=== PATIENT | male | born 1980 | race American Indian/Alaskan Native ===

== ENCOUNTER 2016-11-09 19:28 | Inpatient (IN) | payer OTHER ==
[2016-11-09 20:39] LABS: Urine Drugs of Abuse Note Disclamer
[2016-11-09 20:50] LABS: Bilirubin,Urine NEG (Negative); Blood,Urine NEG (Negative); Ketones,Urine NEG (Negative); Leukocyte Esterase,Urine TR (Negative); Nitrite,Urine NEG (Negative)
[2016-11-09 21:33] LABS: Alanine Aminotransferase 43 units/L (7-56); Albumin 4.1 g/dL (3.9-5); Alkaline Phosphatase 161 units/L (35-129); Anion Gap 18 mmol/L; Blood Urea Nitrogen 11 mg/dL (9-20); Calcium 9.3 mg/dL (8.4-10.2); Carbon Dioxide 25 mmol/L (22-30); Chloride 97.9 mmol/L (98-107); Glucose 273 mg/dL (75-100); Potassium 4.4 mmol/L (3.6-5.0); Sodium 136 mmol/L (137-145); Total Protein 8.4 g/dL (6.3-8.2)
[2016-11-09 21:40] LABS: Basophils % (Auto) 0.9 % (0.0-1.8); Eosinophils % (Auto) 3.5 % (0.0-4.3); Hematocrit 44.1 % (35.5-45.6); Hemoglobin 15.3 gm/dl (11.8-15.2); Mean Corpuscular HGB Conc 35 % (32-34); Mean Corpuscular Hemoglobin 31 pg (28-32); Mean Corpuscular Volume 88 fl (84-94); Platelet Count 283 K/mm3 (140-440); Red Blood Count 5.03 M/mm3 (3.65-5.03); White Blood Count 7.6 K/mm3 (4.5-11.0)
[2016-11-09] MEDS ORDERED: NACL 0.9% 1000 ML 1,000 ML IV ONE (22:44)
--- NOTE | 2016-11-09 23:09 | Emergency Department Report ---
ED Altered Mental Status HPI - General Chief Complaint: Altered Mental Status Stated Complaint: WEAKNESS Time Seen by Provider: 11/09/16 21:42 Source: patient, EMS Mode of arrival: Stretcher Limitations: No Limitations - History of Present Illness Initial Comments: 36 year-old male brought in by EMS for evaluation of altered mental status. He was found lying on the floor in a pool room.The duration for which he was lying on the floor is unknown. MD Complaint: altered mental status Severity: moderate Context: history of similar presen (Yesterday , he had similar problem after lying in the pool room for long periods. He refused to be brought to ED yesterday) Associated Symptoms: weakness, other (confusion) - Related Data Allergies Allergy/AdvReac Type Severity Reaction Status Date / Time No Known Allergies Allergy Verified 11/09/16 20:16 ED Review of Systems ROS: Stated complaint: WEAKNESS Other details as noted in HPI Comment: Unobtainable due to pts medical conditions (pt appears altered and confusion) ED Past Medical Hx - Past Medical History Previous Medical History?: Yes Hx Diabetes: Yes - Surgical History Past Surgical History?: No - Social History Smoking Status: Never Smoker Substance Use Type: None ED Physical Exam - General Limitations: No Limitations, Altered Mental Status General appearance: other (awake, confused, pt has smell of chlorine) - Head Head exam: Present: atraumatic, normocephalic - Eye Eye exam: Present: normal appearance, PERRL, EOMI. Absent: scleral icterus, conjunctival injection - ENT ENT exam: Present: normal exam, normal orophraynx, mucous membranes moist - Neck Neck exam: Present: normal inspection, full ROM. Absent: tenderness, lymphadenopathy - Respiratory Respiratory exam: Present: normal lung sounds bilaterally. Absent: respiratory distress, wheezes, rales, rhonchi, chest wall tenderness - Cardiovascular Cardiovascular Exam: Present: regular rate, normal rhythm, normal heart sounds - GI/Abdominal GI/Abdominal exam: Present: soft, normal bowel sounds. Absent: distended, tenderness, guarding, hyperactive bowel sounds, hypoactive bowel sounds - Rectal Rectal exam: Present: deferred - Extremities Exam Extremities exam: Present: normal inspection, full ROM, normal capillary refill - Back Exam Back exam: Present: normal inspection, full ROM. Absent: CVA tenderness (L) - Neurological Exam Neurological exam: Present: altered, abnormal gait (ataxic gait) ED Course Vital Signs 11/09/16 11/09/16 11/10/16 20:18 23:30 01:34 Temperature 98 F 98.1 F 98.1 F Pulse Rate 74 90 94 H Respiratory 16 16 16 Rate Blood Pressure 174/93 172/91 160/90 [Left] O2 Sat by Pulse 95 98 94 Oximetry - Consultations Consultation #1: 11/10/16 02:11 Patient was discussed with the hospitalist, accepts patient for admission. - Lab Data Result diagrams: 11/09/16 20:42 11/09/16 20:42 Lab Results 11/09/16 11/09/16 11/09/16 Range/Units 20:27 20:32 20:32 WBC (4.5-11.0) K/mm3 RBC (3.65-5.03) M/mm3 Hgb (11.8-15.2) gm/dl Hct (35.5-45.6) % MCV (84-94) fl MCH (28-32) pg MCHC (32-34) % RDW (13.2-15.2) % Plt Count (140-440) K/mm3 Lymph % (Auto) (13.4-35.0) % [place] % (Auto) (0.0-7.3) % Eos % (Auto) (0.0-4.3) % Baso % (Auto) (0.0-1.8) % Lymph # (1.2-5.4) K/mm3 [place] # (0.0-0.8) K/mm3 Eos # (0.0-0.4) K/mm3 Baso # (0.0-0.1) K/mm3 Seg Neutrophils % (40.0-70.0) % Seg Neutrophils # (1.8-7.7) K/mm3 PT (12.2-14.9) Sec. INR (0.87-1.13) APTT (24.2-36.6) Sec. Sodium (137-145) mmol/L Potassium (3.6-5.0) mmol/L Chloride (98-107) mmol/L Carbon Dioxide (22-30) mmol/L Anion Gap mmol/L BUN (9-20) mg/dL Creatinine (0.8-1.5) mg/dL Estimated GFR ml/min BUN/Creatinine Ratio % Glucose (75-100) mg/dL POC Glucose 271 H (70-105) Lactic Acid (0.7-2.0) mmol/L Calcium (8.4-10.2) mg/dL Magnesium (1.7-2.3) mg/dL Total Bilirubin (0.1-1.2) mg/dL AST (5-40) units/L ALT (7-56) units/L Alkaline Phosphatase (35-129) units/L Ammonia (25-60) umol/L Total Creatine Kinase (55-170) units/L Total Protein (6.3-8.2) g/dL Albumin (3.9-5) g/dL Albumin/Globulin Ratio % TSH (0.270-4.200) mlU/mL Urine Color Yellow (Yellow) Urine Turbidity Clear (Clear) Urine pH 6.0 (5.0-7.0) Ur Specific [place] 1.014 (1.003-1.030) Urine Protein 30 mg/dl (Negative) mg/dL Urine Glucose (UA) >=500 (Negative) mg/dL Urine Ketones Neg (Negative) mg/dL Urine Blood Neg (Negative) Urine Nitrite Neg (Negative) Urine Bilirubin Neg (Negative) Urine Urobilinogen 2.0 (<2.0) mg/dL Ur Leukocyte Esterase Tr (Negative) Urine WBC (Auto) 11.0 H (0.0-6.0) /HPF Urine RBC (Auto) 3.0 (0.0-6.0) /HPF U Epithel Cells (Auto) 1.0 (0-13.0) /HPF Salicylates (2.8-20.0) mg/dL Urine Opiates Screen Presumptive negative Urine Methadone Screen Presumptive negative Acetaminophen (10.0-30.0) ug/mL Ur Barbiturates Screen Presumptive negative Ur Phencyclidine Scrn Presumptive negative Ur Amphetamines Screen Presumptive negative U Benzodiazepines Scrn Presumptive negative Urine Cocaine Screen Presumptive negative U Marijuana (THC) Screen Presumptive negative Drugs of Abuse Note Disclamer Plasma/Serum Alcohol (0-0.07) gm% 11/09/16 11/09/16 11/09/16 Range/Units 20:42 20:42 20:42 WBC 7.6 (4.5-11.0) K/mm3 RBC 5.03 (3.65-5.03) M/mm3 Hgb 15.3 H (11.8-15.2) gm/dl Hct 44.1 (35.5-45.6) % MCV 88 (84-94) fl MCH 31 (28-32) pg MCHC 35 H (32-34) % RDW 13.0 L (13.2-15.2) % Plt Count 283 (140-440) K/mm3 Lymph % (Auto) 22.8 (13.4-35.0) % [place] % (Auto) 13.3 H (0.0-7.3) % Eos % (Auto) 3.5 (0.0-4.3) % Baso % (Auto) 0.9 (0.0-1.8) % Lymph # 1.7 (1.2-5.4) K/mm3 [place] # 1.0 H (0.0-0.8) K/mm3 Eos # 0.3 (0.0-0.4) K/mm3 Baso # 0.1 (0.0-0.1) K/mm3 Seg Neutrophils % 59.5 (40.0-70.0) % Seg Neutrophils # 4.5 (1.8-7.7) K/mm3 PT (12.2-14.9) Sec. INR (0.87-1.13) APTT (24.2-36.6) Sec. Sodium 136 L (137-145) mmol/L Potassium 4.4 (3.6-5.0) mmol/L Chloride 97.9 L (98-107) mmol/L Carbon Dioxide 25 (22-30) mmol/L Anion Gap 18 mmol/L BUN 11 (9-20) mg/dL Creatinine 1.0 (0.8-1.5) mg/dL Estimated GFR > 60 ml/min BUN/Creatinine Ratio 11.00 % Glucose 273 H (75-100) mg/dL POC Glucose (70-105) Lactic Acid 1.30 (0.7-2.0) mmol/L Calcium 9.3 (8.4-10.2) mg/dL Magnesium 2.10 (1.7-2.3) mg/dL Total Bilirubin 1.60 H (0.1-1.2) mg/dL AST 28 (5-40) units/L ALT 43 (7-56) units/L Alkaline Phosphatase 161 H (35-129) units/L Ammonia (25-60) umol/L Total Creatine Kinase (55-170) units/L Total Protein 8.4 H (6.3-8.2) g/dL Albumin 4.1 (3.9-5) g/dL Albumin/Globulin Ratio 1.0 % TSH (0.270-4.200) mlU/mL Urine Color (Yellow) Urine Turbidity (Clear) Urine pH (5.0-7.0) Ur Specific [place] (1.003-1.030) Urine Protein (Negative) mg/dL Urine Glucose (UA) (Negative) mg/dL Urine Ketones (Negative) mg/dL Urine Blood (Negative) Urine Nitrite (Negative) Urine Bilirubin (Negative) Urine Urobilinogen (<2.0) mg/dL Ur Leukocyte Esterase (Negative) Urine WBC (Auto) (0.0-6.0) /HPF Urine RBC (Auto) (0.0-6.0) /HPF U Epithel Cells (Auto) (0-13.0) /HPF Salicylates (2.8-20.0) mg/dL Urine Opiates Screen Urine Methadone Screen Acetaminophen (10.0-30.0) ug/mL Ur Barbiturates Screen Ur Phencyclidine Scrn Ur Amphetamines Screen U Benzodiazepines Scrn Urine Cocaine Screen U Marijuana (THC) Screen Drugs of Abuse Note Plasma/Serum Alcohol (0-0.07) gm% 11/09/16 11/09/16 11/09/16 Range/Units 20:42 20:42 20:42 WBC (4.5-11.0) K/mm3 RBC (3.65-5.03) M/mm3 Hgb (11.8-15.2) gm/dl Hct (35.5-45.6) % MCV (84-94) fl MCH (28-32) pg MCHC (32-34) % RDW (13.2-15.2) % Plt Count (140-440) K/mm3 Lymph % (Auto) (13.4-35.0) % [place] % (Auto) (0.0-7.3) % Eos % (Auto) (0.0-4.3) % Baso % (Auto) (0.0-1.8) % Lymph # (1.2-5.4) K/mm3 [place] # (0.0-0.8) K/mm3 Eos # (0.0-0.4) K/mm3 Baso # (0.0-0.1) K/mm3 Seg Neutrophils % (40.0-70.0) % Seg Neutrophils # (1.8-7.7) K/mm3 PT (12.2-14.9) Sec. INR (0.87-1.13) APTT (24.2-36.6) Sec. Sodium (137-145) mmol/L Potassium (3.6-5.0) mmol/L Chloride (98-107) mmol/L Carbon Dioxide (22-30) mmol/L Anion Gap mmol/L BUN (9-20) mg/dL Creatinine (0.8-1.5) mg/dL Estimated GFR ml/min BUN/Creatinine Ratio % Glucose (75-100) mg/dL POC Glucose (70-105) Lactic Acid (0.7-2.0) mmol/L Calcium (8.4-10.2) mg/dL Magnesium (1.7-2.3) mg/dL Total Bilirubin (0.1-1.2) mg/dL AST (5-40) units/L ALT (7-56) units/L Alkaline Phosphatase (35-129) units/L Ammonia (25-60) umol/L Total Creatine Kinase (55-170) units/L Total Protein (6.3-8.2) g/dL Albumin (3.9-5) g/dL Albumin/Globulin Ratio % TSH 1.430 (0.270-4.200) mlU/mL Urine Color (Yellow) Urine Turbidity (Clear) Urine pH (5.0-7.0) Ur Specific [place] (1.003-1.030) Urine Protein (Negative) mg/dL Urine Glucose (UA) (Negative) mg/dL Urine Ketones (Negative) mg/dL Urine Blood (Negative) Urine Nitrite (Negative) Urine Bilirubin (Negative) Urine Urobilinogen (<2.0) mg/dL Ur Leukocyte Esterase (Negative) Urine WBC (Auto) (0.0-6.0) /HPF Urine RBC (Auto) (0.0-6.0) /HPF U Epithel Cells (Auto) (0-13.0) /HPF Salicylates < 0.3 L (2.8-20.0) mg/dL Urine Opiates Screen Urine Methadone Screen Acetaminophen < 15.0 (10.0-30.0) ug/mL Ur Barbiturates Screen Ur Phencyclidine Scrn Ur Amphetamines Screen U Benzodiazepines Scrn Urine Cocaine Screen U Marijuana (THC) Screen Drugs of Abuse Note Plasma/Serum Alcohol (0-0.07) gm% 11/09/16 11/09/16 11/09/16 Range/Units 20:42 23:23 23:23 WBC (4.5-11.0) K/mm3 RBC (3.65-5.03) M/mm3 Hgb (11.8-15.2) gm/dl Hct (35.5-45.6) % MCV (84-94) fl MCH (28-32) pg MCHC (32-34) % RDW (13.2-15.2) % Plt Count (140-440) K/mm3 Lymph % (Auto) (13.4-35.0) % [place] % (Auto) (0.0-7.3) % Eos % (Auto) (0.0-4.3) % Baso % (Auto) (0.0-1.8) % Lymph # (1.2-5.4) K/mm3 [place] # (0.0-0.8) K/mm3 Eos # (0.0-0.4) K/mm3 Baso # (0.0-0.1) K/mm3 Seg Neutrophils % (40.0-70.0) % Seg Neutrophils # (1.8-7.7) K/mm3 PT (12.2-14.9) Sec. INR (0.87-1.13) APTT (24.2-36.6) Sec. Sodium (137-145) mmol/L Potassium (3.6-5.0) mmol/L Chloride (98-107) mmol/L Carbon Dioxide (22-30) mmol/L Anion Gap mmol/L BUN (9-20) mg/dL Creatinine (0.8-1.5) mg/dL Estimated GFR ml/min BUN/Creatinine Ratio % Glucose (75-100) mg/dL POC Glucose (70-105) Lactic Acid 2.50 H* 2.50 H* (0.7-2.0) mmol/L Calcium (8.4-10.2) mg/dL Magnesium (1.7-2.3) mg/dL Total Bilirubin (0.1-1.2) mg/dL AST (5-40) units/L ALT (7-56) units/L Alkaline Phosphatase (35-129) units/L Ammonia (25-60) umol/L Total Creatine Kinase (55-170) units/L Total Protein (6.3-8.2) g/dL Albumin (3.9-5) g/dL Albumin/Globulin Ratio % TSH (0.270-4.200) mlU/mL Urine Color (Yellow) Urine Turbidity (Clear) Urine pH (5.0-7.0) Ur Specific [place] (1.003-1.030) Urine Protein (Negative) mg/dL Urine Glucose (UA) (Negative) mg/dL Urine Ketones (Negative) mg/dL Urine Blood (Negative) Urine Nitrite (Negative) Urine Bilirubin (Negative) Urine Urobilinogen (<2.0) mg/dL Ur Leukocyte Esterase (Negative) Urine WBC (Auto) (0.0-6.0) /HPF Urine RBC (Auto) (0.0-6.0) /HPF U Epithel Cells (Auto) (0-13.0) /HPF Salicylates (2.8-20.0) mg/dL Urine Opiates Screen Urine Methadone Screen Acetaminophen (10.0-30.0) ug/mL Ur Barbiturates Screen Ur Phencyclidine Scrn Ur Amphetamines Screen U Benzodiazepines Scrn Urine Cocaine Screen U Marijuana (THC) Screen Drugs of Abuse Note Plasma/Serum Alcohol < 0.01 (0-0.07) gm% 11/09/16 11/09/16 11/09/16 Range/Units 23:23 23:29 23:29 WBC (4.5-11.0) K/mm3 RBC (3.65-5.03) M/mm3 Hgb (11.8-15.2) gm/dl Hct (35.5-45.6) % MCV (84-94) fl MCH (28-32) pg MCHC (32-34) % RDW (13.2-15.2) % Plt Count (140-440) K/mm3 Lymph % (Auto) (13.4-35.0) % [place] % (Auto) (0.0-7.3) % Eos % (Auto) (0.0-4.3) % Baso % (Auto) (0.0-1.8) % Lymph # (1.2-5.4) K/mm3 [place] # (0.0-0.8) K/mm3 Eos # (0.0-0.4) K/mm3 Baso # (0.0-0.1) K/mm3 Seg Neutrophils % (40.0-70.0) % Seg Neutrophils # (1.8-7.7) K/mm3 PT 15.0 H (12.2-14.9) Sec. INR 1.12 (0.87-1.13) APTT 32.8 (24.2-36.6) Sec. Sodium (137-145) mmol/L Potassium (3.6-5.0) mmol/L Chloride (98-107) mmol/L Carbon Dioxide (22-30) mmol/L Anion Gap mmol/L BUN (9-20) mg/dL Creatinine (0.8-1.5) mg/dL Estimated GFR ml/min BUN/Creatinine Ratio % Glucose (75-100) mg/dL POC Glucose (70-105) Lactic Acid (0.7-2.0) mmol/L Calcium (8.4-10.2) mg/dL Magnesium (1.7-2.3) mg/dL Total Bilirubin (0.1-1.2) mg/dL AST (5-40) units/L ALT (7-56) units/L Alkaline Phosphatase (35-129) units/L Ammonia 59.0 (25-60) umol/L Total Creatine Kinase 384 H (55-170) units/L Total Protein (6.3-8.2) g/dL Albumin (3.9-5) g/dL Albumin/Globulin Ratio % TSH (0.270-4.200) mlU/mL Urine Color (Yellow) Urine Turbidity (Clear) Urine pH (5.0-7.0) Ur Specific [place] (1.003-1.030) Urine Protein (Negative) mg/dL Urine Glucose (UA) (Negative) mg/dL Urine Ketones (Negative) mg/dL Urine Blood (Negative) Urine Nitrite (Negative) Urine Bilirubin (Negative) Urine Urobilinogen (<2.0) mg/dL Ur Leukocyte Esterase (Negative) Urine WBC (Auto) (0.0-6.0) /HPF Urine RBC (Auto) (0.0-6.0) /HPF U Epithel Cells (Auto) (0-13.0) /HPF Salicylates (2.8-20.0) mg/dL Urine Opiates Screen Urine Methadone Screen Acetaminophen (10.0-30.0) ug/mL Ur Barbiturates Screen Ur Phencyclidine Scrn Ur Amphetamines Screen U Benzodiazepines Scrn Urine Cocaine Screen U Marijuana (THC) Screen Drugs of Abuse Note Plasma/Serum Alcohol (0-0.07) gm% 11/09/16 Range/Units 23:29 WBC (4.5-11.0) K/mm3 RBC (3.65-5.03) M/mm3 Hgb (11.8-15.2) gm/dl Hct (35.5-45.6) % MCV (84-94) fl MCH (28-32) pg MCHC (32-34) % RDW (13.2-15.2) % Plt Count (140-440) K/mm3 Lymph % (Auto) (13.4-35.0) % [place] % (Auto) (0.0-7.3) % Eos % (Auto) (0.0-4.3) % Baso % (Auto) (0.0-1.8) % Lymph # (1.2-5.4) K/mm3 [place] # (0.0-0.8) K/mm3 Eos # (0.0-0.4) K/mm3 Baso # (0.0-0.1) K/mm3 Seg Neutrophils % (40.0-70.0) % Seg Neutrophils # (1.8-7.7) K/mm3 PT (12.2-14.9) Sec. INR (0.87-1.13) APTT (24.2-36.6) Sec. Sodium (137-145) mmol/L Potassium (3.6-5.0) mmol/L Chloride (98-107) mmol/L Carbon Dioxide (22-30) mmol/L Anion Gap mmol/L BUN (9-20) mg/dL Creatinine (0.8-1.5) mg/dL Estimated GFR ml/min BUN/Creatinine Ratio % Glucose (75-100) mg/dL POC Glucose (70-105) Lactic Acid (0.7-2.0) mmol/L Calcium (8.4-10.2) mg/dL Magnesium 2.10 (1.7-2.3) mg/dL Total Bilirubin (0.1-1.2) mg/dL AST (5-40) units/L ALT (7-56) units/L Alkaline Phosphatase (35-129) units/L Ammonia (25-60) umol/L Total Creatine Kinase (55-170) units/L Total Protein (6.3-8.2) g/dL Albumin (3.9-5) g/dL Albumin/Globulin Ratio % TSH (0.270-4.200) mlU/mL Urine Color (Yellow) Urine Turbidity (Clear) Urine pH (5.0-7.0) Ur Specific [place] (1.003-1.030) Urine Protein (Negative) mg/dL Urine Glucose (UA) (Negative) mg/dL Urine Ketones (Negative) mg/dL Urine Blood (Negative) Urine Nitrite (Negative) Urine Bilirubin (Negative) Urine Urobilinogen (<2.0) mg/dL Ur Leukocyte Esterase (Negative) Urine WBC (Auto) (0.0-6.0) /HPF Urine RBC (Auto) (0.0-6.0) /HPF U Epithel Cells (Auto) (0-13.0) /HPF Salicylates (2.8-20.0) mg/dL Urine Opiates Screen Urine Methadone Screen Acetaminophen (10.0-30.0) ug/mL Ur Barbiturates Screen Ur Phencyclidine Scrn Ur Amphetamines Screen U Benzodiazepines Scrn Urine Cocaine Screen U Marijuana (THC) Screen Drugs of Abuse Note Plasma/Serum Alcohol (0-0.07) gm% - EKG Data -: EKG Interpreted by 11/10/16 02:12 Normal sinus rhythm, rate of 67 beats per minutes rightward axis, left ventricle hypertrophy and nonspecific ST changes in V2 and V3 normal intervals. - Radiology Data Radiology results: report reviewed - Medical Decision Making Patient has acute delirium from exposure to hypochlorite in pool Critical Care Time: No Critical care attestation.: If time is entered above; I have spent that time in minutes in the direct care of this critically ill patient, excluding procedure time. ED Disposition Clinical Impression: Acute delirium Disposition: OP ADMIT IP TO THIS HOSP Is pt being admited?: Yes Does the pt Need Aspirin: Yes Condition: Fair Referrals: PRIMARY CARE, [Primary Care Provider] - 3-5 Days Time of Disposition: 02:16
--- NOTE | 2016-11-09 23:37 | Cat Scan Report ---
FINAL REPORT EXAM: CT HEAD/BRAIN WO CON HISTORY: acute confusion TECHNIQUE: Noncontrast CT axial images of the brain. PRIORS: None. FINDINGS: No parenchymal mass, mass effect, hemorrhage, midline shift or hydrocephalus. No evidence of acute cortical infarct. No abnormal, extra-axial fluid or air collection. Possible prominent perivascular spaces, chronic small vessel ischemic change or old lacunes in the right periventricular deep white matter, basal ganglia region and left internal capsule. Osseous calvarium grossly intact. IMPRESSION: 1. No acute intracranial findings. 2. Possible chronic ischemic changes.
[2016-11-10 00:05] LABS: INR 1.12 (0.87-1.13); Partial Thromboplastin Time 32.8 Sec. (24.2-36.6)
[2016-11-10] MEDS ORDERED: ROCEPHIN/NS 1 GM/50 ML 1 GM/50 ML BAG IV ONE (00:07)
[2016-11-10] MEDS ORDERED: NACL 0.9% 1000 ML 1,000 ML IV ONE (00:08)
[2016-11-10] MEDS ORDERED: MILK OF MAGNESIA PO PRN (02:26)
[2016-11-10] MEDS ORDERED: DULCOLAX PR PRN (02:26)
[2016-11-10] MEDS ORDERED: NORCO 5/325 PO PRN (02:26)
[2016-11-10] MEDS ORDERED: TYLENOL PO PRN (02:26)
[2016-11-10] MEDS ORDERED: ZOFRAN IV PRN (02:26)
--- NOTE | 2016-11-10 02:26 | History and Physical Report ---
History of Present Illness Date of examination: 11/10/16 Date of admission: 11/10/16 Chief complaint: Altered mental status History of present illness: patient is 36-year-old with history of diabetes. He was brought in from [facility] because of altered mental status. Apparently was seen lying on the floor in the hot tub/pool area for several hours therefore brought in for evaluation. Patient was found to be confused. He denies doing any exercises at the facility. Currently denies any chest pain or shortness of breath. No headache, no fever. He is somewhat confused and cannot give a complete history. In Emergency department a CT head was unremarkable. Willl admit for further workup. Past History Past Medical History: diabetes Past Surgical History: No surgical history Social history: single, full code. denies: smoking, alcohol abuse Family history: hypertension Medications and Allergies Allergies Allergy/AdvReac Type Severity Reaction Status Date / Time No Known Allergies Allergy Verified 11/09/16 20:16 Active Meds: Active Medications Sodium Chloride (Nacl 0.9% 1000 Ml) 1,000 mls @ 125 mls/hr IV ONCE ONE Stop: 11/10/16 06:43 Review of Systems ROS unobtainable: due to mental status Exam - Physical Exam Narrative exam: Gen Appearance: Not in acute distress HEENT: normocephalic, atraumatic Neck: supple, no JVD Lungs: Clear to auscultation, bilaterally, no rales, no wheeze Heart: S1 and S2 regular, no murmurs, no rubs or gallop Abdomen: Soft , non tender, non distended, normal bowel sounds Extremity: No edema, no clubbing or cyanosis, Neuro : Awake, alert, oriented to person, place,time, confused, normal speech, moves all extremities - Constitutional Vitals: Temp Pulse Resp BP Pulse Ox 98.1 F 94 H 16 160/90 94 11/10/16 01:34 11/10/16 01:34 11/10/16 01:34 11/10/16 01:34 11/10/16 01:34 Results - Labs CBC & Chem 7: 11/09/16 20:42 11/09/16 20:42 Labs: Abnormal lab results 11/09/16 11/09/16 11/09/16 Range/Units 20:27 20:32 20:42 Hgb 15.3 H (11.8-15.2) gm/dl MCHC 35 H (32-34) % RDW 13.0 L (13.2-15.2) % [place] % (Auto) 13.3 H (0.0-7.3) % [place] # 1.0 H (0.0-0.8) K/mm3 PT (12.2-14.9) Sec. Sodium (137-145) mmol/L Chloride (98-107) mmol/L Glucose (75-100) mg/dL POC Glucose 271 H (70-105) Lactic Acid (0.7-2.0) mmol/L Total Bilirubin (0.1-1.2) mg/dL Alkaline Phosphatase (35-129) units/L Total Creatine Kinase (55-170) units/L Total Protein (6.3-8.2) g/dL Urine WBC (Auto) 11.0 H (0.0-6.0) /HPF Salicylates (2.8-20.0) mg/dL 11/09/16 11/09/16 11/09/16 Range/Units 20:42 20:42 23:23 Hgb (11.8-15.2) gm/dl MCHC (32-34) % RDW (13.2-15.2) % [place] % (Auto) (0.0-7.3) % [place] # (0.0-0.8) K/mm3 PT (12.2-14.9) Sec. Sodium 136 L (137-145) mmol/L Chloride 97.9 L (98-107) mmol/L Glucose 273 H (75-100) mg/dL POC Glucose (70-105) Lactic Acid 2.50 H* (0.7-2.0) mmol/L Total Bilirubin 1.60 H (0.1-1.2) mg/dL Alkaline Phosphatase 161 H (35-129) units/L Total Creatine Kinase (55-170) units/L Total Protein 8.4 H (6.3-8.2) g/dL Urine WBC (Auto) (0.0-6.0) /HPF Salicylates < 0.3 L (2.8-20.0) mg/dL 11/09/16 11/09/16 11/09/16 Range/Units 23:23 23:29 23:29 Hgb (11.8-15.2) gm/dl MCHC (32-34) % RDW (13.2-15.2) % [place] % (Auto) (0.0-7.3) % [place] # (0.0-0.8) K/mm3 PT 15.0 H (12.2-14.9) Sec. Sodium (137-145) mmol/L Chloride (98-107) mmol/L Glucose (75-100) mg/dL POC Glucose (70-105) Lactic Acid 2.50 H* (0.7-2.0) mmol/L Total Bilirubin (0.1-1.2) mg/dL Alkaline Phosphatase (35-129) units/L Total Creatine Kinase 384 H (55-170) units/L Total Protein (6.3-8.2) g/dL Urine WBC (Auto) (0.0-6.0) /HPF Salicylates (2.8-20.0) mg/dL Assessment and Plan Acute metabolic encephalopathy with altered mental status. Patient brought in from [facility], was seen lying on floor in hot tub area. Admit to medical floor with remote telemetry. Do neurochecks every [address] head was unremarkable. Diabetes mellitus type II. Fingerstick glucose Qac and HS. He is confused and cannot tell what medications he is taking. Current glucose is 273. Start Novolin 70/30 bid. Obtain hemoglobin A1c. Elevated blood pressure. He may have hypertension but is confused and cannot provide much history. Will start Norvasc 5 mg by mouth daily. Hyponatremia. Started on iv fluids with Normal saline. Elevated lactic acid, likely metabolic. UTI. Started on Rocephin. Obtain Urine culture. DVT prophylaxis with heparin subcutanous. Full code status.
[2016-11-10] MEDS: NORVASC PO SCH ×2 (02:48→03:29)
[2016-11-10] MEDS: NACL 0.9% 1000 ML 1,000 ML IV SCH ×2 (03:32→22:04)
[2016-11-10] MEDS: HEPARIN SUB-Q SCH ×3 (05:31→22:05)
[2016-11-10] MEDS ORDERED: ASPIRIN PO ONE (05:54)
[2016-11-10] MEDS ORDERED: D50W (25GM) Syringe IV PRN (06:55)
[2016-11-10] MEDS: APRESOLINE IV PRN ×2 (08:15→18:38)
[2016-11-10] MEDS: NOVOLOG SUB-Q SCH ×6 (10:47→22:53)
[2016-11-10] MEDS: ROCEPHIN/NS 1 GM/50 ML 1 GM/50 ML BAG IV SCH (22:05)
[2016-11-11] MEDS: HEPARIN SUB-Q SCH ×3 (05:58→22:43)
[2016-11-11 07:07] LABS: Basophils % (Auto) 0.5 % (0.0-1.8); Eosinophils % (Auto) 1.9 % (0.0-4.3); Hematocrit 42.9 % (35.5-45.6); Mean Corpuscular HGB Conc 35 % (32-34); Mean Corpuscular Hemoglobin 31 pg (28-32); Mean Corpuscular Volume 87 fl (84-94); Platelet Count 285 K/mm3 (140-440); Red Blood Count 4.91 M/mm3 (3.65-5.03); Red Cell Distribution Width 13.2 % (13.2-15.2); White Blood Count 7.5 K/mm3 (4.5-11.0)
[2016-11-11 07:27] LABS: Anion Gap 17 mmol/L; BUN/Creatinine Ratio 8.88; Blood Urea Nitrogen 8 mg/dL (9-20); Calcium 8.9 mg/dL (8.4-10.2); Carbon Dioxide 22 mmol/L (22-30); Glucose 225 mg/dL (75-100); Sodium 141 mmol/L (137-145)
[2016-11-11 07:43] LABS: Potassium 3.4 mmol/L (3.6-5.0)
[2016-11-11] MEDS: NOVOLOG SUB-Q SCH ×4 (08:29→22:44)
[2016-11-11] MEDS ORDERED: ATIVAN IV ONE (10:38)
[2016-11-11] MEDS: NORVASC PO SCH (10:43)
--- NOTE | 2016-11-11 12:54 | Progress Note ---
Assessment and Plan Assessment and plan: 36 years old AAM with hypertension and diabetes, [facility], [facility] from [facility] where he was found confused laying on the floor in the hot tub area 1. Acute metabolic encephalopathy Likely multifactorial - metabolic/infectious/? psychiatric TSH within normal limits, CT head with no acute abnormalities Scheduled for brain MRI Treat underlying conditions Try to obtain records from [place] Consults psychiatry 2. UTI UA positive, urine culture obtained and started on Rocephin 3. Hyponatremia Mild, resolved 4. Elevated lactic acid Treat UTI 5. HTN Started on amlodipine on admission BP still elevated Will increase amlodipine dose and add lisinopril as he is diabetic 6. DM Started on insulin 70/30 A1c elevated at 8.8 and BS in 200-300 range Increased dose of insulin and add SSI based on the chest to assess insulin requirements and make adjustments 7. DVT prophylaxis Heparin subcutaneous History Interval history: reports no issues overnight, but flat affect, avoids eye contact Hospitalist Physical - Constitutional Vitals: Temp Pulse Resp BP Pulse Ox 98.9 F 89 15 160/102 94 11/11/16 07:42 11/11/16 07:42 11/11/16 07:42 11/11/16 10:43 11/11/16 07:42 General appearance: Present: no acute distress, well-nourished - EENT Eyes: Present: PERRL, EOM intact. Absent: scleral icterus, conjunctival injection - Neck Neck: Present: supple, normal ROM. Absent: masses or JVD - Respiratory Respiratory effort: normal Respiratory: bilateral: CTA, negative: rhonchi, wheezing - Cardiovascular Rhythm: regular Heart Sounds: Present: S1 & S2. Absent: systolic murmur - Extremities Extremities: no ischemia - Abdominal General gastrointestinal: soft, non-tender, non-distended, normal bowel sounds - Psychiatric Psychiatric: no intact judgment & insight, other (flat affect, not making eye contact, responding only with yes or no) - Neurologic Neurologic: CNII-XII intact, no focal deficits Results - Labs CBC & Chem 7: 11/11/16 06:18 11/11/16 06:18 Labs: Laboratory Last Values WBC 7.5 K/mm3 (4.5-11.0) 11/11/16 06:18 RBC 4.91 M/mm3 (3.65-5.03) 11/11/16 06:18 Hgb 15.0 gm/dl (11.8-15.2) 11/11/16 06:18 Hct 42.9 % (35.5-45.6) 11/11/16 06:18 MCV 87 fl (84-94) 11/11/16 06:18 MCH 31 pg (28-32) 11/11/16 06:18 MCHC 35 % (32-34) H 11/11/16 06:18 RDW 13.2 % (13.2-15.2) 11/11/16 06:18 Plt Count 285 K/mm3 (140-440) 11/11/16 06:18 Lymph % (Auto) 31.9 % (13.4-35.0) 11/11/16 06:18 Dent % (Auto) 15.4 % (0.0-7.3) H 11/11/16 06:18 Eos % (Auto) 1.9 % (0.0-4.3) 11/11/16 06:18 Baso % (Auto) 0.5 % (0.0-1.8) 11/11/16 06:18 Lymph # 2.4 K/mm3 (1.2-5.4) 11/11/16 06:18 Dent # 1.2 K/mm3 (0.0-0.8) H 11/11/16 06:18 Eos # 0.1 K/mm3 (0.0-0.4) 11/11/16 06:18 Baso # 0.0 K/mm3 (0.0-0.1) 11/11/16 06:18 Seg Neutrophils % 50.3 % (40.0-70.0) 11/11/16 06:18 Seg Neutrophils # 3.8 K/mm3 (1.8-7.7) 11/11/16 06:18 PT 15.0 Sec. (12.2-14.9) H 11/09/16 23:29 INR 1.12 (0.87-1.13) 11/09/16 23:29 APTT 32.8 Sec. (24.2-36.6) 11/09/16 23:29 Sodium 141 mmol/L (137-145) 11/11/16 06:18 Potassium 3.4 mmol/L (3.6-5.0) L D 11/11/16 06:18 Chloride 105.0 mmol/L (98-107) 11/11/16 06:18 Carbon Dioxide 22 mmol/L (22-30) 11/11/16 06:18 Anion Gap 17 mmol/L 11/11/16 06:18 BUN 8 mg/dL (9-20) L 11/11/16 06:18 Creatinine 0.9 mg/dL (0.8-1.5) 11/11/16 06:18 Estimated GFR > 60 ml/min 11/11/16 06:18 BUN/Creatinine Ratio 8.88 % 11/11/16 06:18 Glucose 225 mg/dL (75-100) H 11/11/16 06:18 POC Glucose 232 (70-105) H 11/11/16 11:53 Hemoglobin A1c 8.8 % (4-6) H 11/09/16 20:42 Lactic Acid 2.50 mmol/L (0.7-2.0) H* 11/09/16 23:23 Calcium 8.9 mg/dL (8.4-10.2) 11/11/16 06:18 Magnesium 2.10 mg/dL (1.7-2.3) 11/09/16 23:29 Total Bilirubin 1.60 mg/dL (0.1-1.2) H 11/09/16 20:42 AST 28 units/L (5-40) 11/09/16 20:42 ALT 43 units/L (7-56) 11/09/16 20:42 Alkaline Phosphatase 161 units/L (35-129) H 11/09/16 20:42 Ammonia 59.0 umol/L (25-60) 11/09/16 23:23 Total Creatine Kinase 323 units/L (55-170) H 11/10/16 05:59 Total Protein 8.4 g/dL (6.3-8.2) H 11/09/16 20:42 Albumin 4.1 g/dL (3.9-5) 11/09/16 20:42 Albumin/Globulin Ratio 1.0 % 11/09/16 20:42 TSH 1.430 mlU/mL (0.270-4.200) 11/09/16 20:42 Urine Color Yellow (Yellow) 11/09/16 20:32 Urine Turbidity Clear (Clear) 11/09/16 20:32 Urine pH 6.0 (5.0-7.0) 11/09/16 20:32 Ur Specific [place] 1.014 (1.003-1.030) 11/09/16 20:32 Urine Protein 30 mg/dl mg/dL (Negative) 11/09/16 20:32 Urine Glucose (UA) >=500 mg/dL (Negative) 11/09/16 20:32 Urine Ketones Neg mg/dL (Negative) 11/09/16 20:32 Urine Blood Neg (Negative) 11/09/16 20:32 Urine Nitrite Neg (Negative) 11/09/16 20:32 Urine Bilirubin Neg (Negative) 11/09/16 20:32 Urine Urobilinogen 2.0 mg/dL (<2.0) 11/09/16 20:32 Ur Leukocyte Esterase Tr (Negative) 11/09/16 20:32 Urine WBC (Auto) 11.0 /HPF (0.0-6.0) H 11/09/16 20:32 Urine RBC (Auto) 3.0 /HPF (0.0-6.0) 11/09/16 20:32 U Epithel Cells (Auto) 1.0 /HPF (0-13.0) 11/09/16 20:32 Salicylates < 0.3 mg/dL (2.8-20.0) L 11/09/16 20:42 Urine Opiates Screen Presumptive negative 11/09/16 20:32 Urine Methadone Screen Presumptive negative 11/09/16 20:32 Acetaminophen < 15.0 ug/mL (10.0-30.0) 11/09/16 20:42 Ur Barbiturates Screen Presumptive negative 11/09/16 20:32 Ur Phencyclidine Scrn Presumptive negative 11/09/16 20:32 Ur Amphetamines Screen Presumptive negative 11/09/16 20:32 U Benzodiazepines Scrn Presumptive negative 11/09/16 20:32 Urine Cocaine Screen Presumptive negative 11/09/16 20:32 U Marijuana (THC) Screen Presumptive negative 11/09/16 20:32 Drugs of Abuse Note Disclamer 11/09/16 20:32 Plasma/Serum Alcohol < 0.01 gm% (0-0.07) 11/09/16 20:42
[2016-11-11] MEDS ORDERED: NORVASC PO SCH (13:10)
[2016-11-11] MEDS: ZESTRIL PO SCH (14:00)
[2016-11-11] MEDS ORDERED: NORVASC PO ONE (14:00)
--- NOTE | 2016-11-11 14:40 | Magnetic Resonance Report ---
MRI scan of brain: History: Altered mental status. Technique: Multiplanar, multisequence images were obtained without contrast injection. Findings: There is multiple focal areas of restricted diffusion measuring up to one cm along the right cerebral hemisphere including the right basal ganglia and the right temporal lobe, the parietal lobe and corpus callosum. Corresponding areas of hyperintensity is noted on T2-weighted images and flair imaging. Normal T1-weighted images. No hemorrhage. No extra-axial fluid collection. Normal brainstem and cerebellum. Impression: Multiple focal areas of restricted diffusion right cerebral hemisphere suggestive ischemic changes probably related to multiple emboli.
[2016-11-11] MEDS: NACL 0.9% 1000 ML 1,000 ML IV SCH (18:03)
[2016-11-11] MEDS: ROCEPHIN/NS 1 GM/50 ML 1 GM/50 ML BAG IV SCH (22:45)
[2016-11-12] MEDS: HEPARIN SUB-Q SCH ×3 (06:56→22:35)
[2016-11-12] MEDS: NOVOLOG SUB-Q SCH ×4 (08:19→22:38)
[2016-11-12] MEDS: NORVASC PO SCH (09:44)
[2016-11-12] MEDS: ZESTRIL PO SCH (09:45)
[2016-11-12] MEDS ORDERED: ZESTRIL PO SCH (10:49)
[2016-11-12] MEDS ORDERED: ASPIRIN PO ONE (10:52)
[2016-11-12 11:57] LABS: Anion Gap 15 mmol/L; BUN/Creatinine Ratio 11; Blood Urea Nitrogen 9 mg/dL (9-20); Calcium 9.4 mg/dL (8.4-10.2); Carbon Dioxide 24 mmol/L (22-30); Chloride 103.2 mmol/L (98-107); Glucose 252 mg/dL (75-100); Potassium 3.9 mmol/L (3.6-5.0); Sodium 138 mmol/L (137-145)
[2016-11-12] MEDS ORDERED: ZESTRIL PO ONE (12:00)
[2016-11-12] MEDS: NACL 0.9% 1000 ML 1,000 ML IV SCH (12:32)
--- NOTE | 2016-11-12 13:04 | Consultation ---
History of Present Illness - Reason for Consult Consult date: 11/12/16 stroke - History of Present Illness Neurology note suspect the delirium is caused by multiple small emboli to right cerebral hemisphere rec check ECHO for sourse of emboli this is stroke syndrome Thanks will follow Past History Past Medical History: diabetes Past Surgical History: No surgical history Social history: single, full code. denies: smoking, alcohol abuse Family history: hypertension Medications and Allergies Allergies Allergy/AdvReac Type Severity Reaction Status Date / Time No Known Allergies Allergy Verified 11/09/16 20:16 Active Meds: Active Medications Acetaminophen (Tylenol) 650 mg PO Q4H PRN PRN Reason: Pain MILD(1-3)/Fever >100.5/BERNARD Acetaminophen/Hydrocodone Bitart ([place] 5/325) 1 each PO Q6H PRN PRN Reason: Pain, Moderate (4-6) Last Admin: 11/10/16 22:48 Dose: 1 each Amlodipine Besylate (Norvasc) 10 mg PO DAILY [facility] Last Admin: 11/12/16 09:44 Dose: 10 mg Aspirin (Aspirin) 325 mg PO QDAY [facility] Atorvastatin Calcium (Lipitor) 40 mg PO QHS [facility] Bisacodyl (Dulcolax) 10 mg [place] QDAY PRN PRN Reason: Constipation unrelieved by MOM Dextrose (D50w (25gm) Syringe) 50 ml IV PRN PRN PRN Reason: Hypoglycemia Heparin Sodium (Porcine) (Heparin) 5,000 unit SUB-Q Q8HR [facility] Last Admin: 11/12/16 06:56 Dose: 5,000 unit Hydralazine HCl (Apresoline) 10 mg IV Q4HR PRN PRN Reason: For SBP>165 or DBP>105 Last Admin: 11/10/16 18:38 Dose: 10 mg Ceftriaxone Sodium (Rocephin/Ns 1 Gm/50 Ml) 1 gm in 50 mls @ 100 mls/hr IV Q24H [facility] PRN Reason: Protocol Last Admin: 11/11/16 22:45 Dose: 100 mls/hr Sodium Chloride (Nacl 0.9% 1000 Ml) 1,000 mls @ 75 mls/hr IV DIRECT [facility] Last Admin: 11/12/16 12:32 Dose: 75 mls/hr Insulin Aspart (Novolog) 0 units SUB-Q AC [facility] PRN Reason: Protocol Last Admin: 11/12/16 12:25 Dose: 3 units Insulin Aspart (Novolog) 0 units SUB-Q QHS [facility] PRN Reason: Protocol Last Admin: 11/11/16 22:44 Dose: 4 units Insulin Human Isoph/Insulin Regular (Novolin 70/30) 15 unit SUB-Q BIDDIAB [facility] Last Admin: 11/12/16 08:28 Dose: 15 unit Lisinopril (Zestril) 20 mg PO QDAY [facility] Magnesium Hydroxide (Milk Of Magnesia) 30 ml PO Q4H PRN PRN Reason: Constipation Ondansetron HCl (Zofran) 4 mg IV Q6H PRN PRN Reason: nausea or vomiting Exam - Constitutional Vitals: Temp Pulse Resp BP Pulse Ox 98.1 F 84 16 160/103 96 11/12/16 12:40 11/12/16 12:40 11/12/16 12:40 11/12/16 12:40 11/12/16 12:40 Results - Labs CBC & Chem 7: 11/11/16 06:18 11/12/16 11:13 Labs: Abnormal lab results 11/11/16 11/11/16 11/12/16 Range/Units 16:53 21:19 06:35 Glucose (75-100) mg/dL POC Glucose 346 H 285 H 195 H (70-105) 11/12/16 11/12/16 Range/Units 11:13 11:59 Glucose 252 H (75-100) mg/dL POC Glucose 226 H (70-105)
--- NOTE | 2016-11-12 16:36 | Progress Note ---
Assessment and Plan Acute encephalopathy Likely multifactorial - acute cva/infectious TSH within normal limits, CT head with no acute abnormalities MRI showed multiple acute CVA on the right hemisphere consulted neurology Acute right CVA Noted MRI result consulted neurology obtain 2d echo UTI UA positive, urine culture obtained and started on Rocephin Hyponatremia Mild, resolved Elevated lactic acid Treat UTI HTN Started on amlodipine on admission increased amlodipine dose and added lisinopril as he is diabetic DM type 2 Started on insulin 70/30 A1c elevated at 8.8 and BS in 200-300 range Increased dose of insulin to 18 unit qam and bedtime and add SSI based on the BG level and make adjustments DVT prophylaxis Heparin subcutaneous Brief History: 36 years old AAM with hypertension and diabetes, who gets his care at the [facility], brought to ER from [facility] where he was found confused laying on the floor in the hot tub area. Radiological Data: CT head on 11/09/16 showed no acute finding MRI of brain on 11/11/16 showed multiple diffusion restriction on the right hemisphere Subjective Date of service: 11/12/16 Interval history: Pt seen and examined No reports of any acute issue overnight, MRI showed multiple acute CVA on the right hemisphere Objective - Exam Narrative Exam: General appearance: Present: no acute distress, well-nourished - EENT Eyes: Present: PERRL, EOM intact. Absent: scleral icterus, conjunctival injection - Neck Neck: Present: supple, normal ROM. Absent: masses or JVD - Respiratory Respiratory effort: normal Respiratory: bilateral: CTA, negative: rhonchi, wheezing - Cardiovascular Rhythm: regular Heart Sounds: Present: S1 & S2. Absent: systolic murmur - Extremities Extremities: no ischemia - Abdominal General gastrointestinal: soft, non-tender, non-distended, normal bowel sounds - Psychiatric Psychiatric: cooperative - Neurologic Neurologic: CNII-XII intact, no focal deficits - Constitutional Vitals: Vital Signs - 12hr 11/12/16 11/12/16 11/12/16 07:29 09:44 09:45 Temperature 98.5 F Pulse Rate 90 90 90 Respiratory 24 Rate Blood Pressure 155/104 155/104 155/104 O2 Sat by Pulse 98 Oximetry 11/12/16 11/12/16 11/12/16 12:40 15:25 15:30 Temperature 98.1 F 98.8 F Pulse Rate 84 84 91 H Respiratory 16 15 Rate Blood Pressure 160/103 160/103 159/106 O2 Sat by Pulse 96 97 Oximetry - Labs CBC & Chem 7: 11/11/16 06:18 11/12/16 11:13 Labs: Abnormal lab results 11/11/16 11/11/16 11/12/16 Range/Units 16:53 21:19 06:35 Glucose (75-100) mg/dL POC Glucose 346 H 285 H 195 H (70-105) 11/12/16 11/12/16 Range/Units 11:13 11:59 Glucose 252 H (75-100) mg/dL POC Glucose 226 H (70-105)
[2016-11-12] MEDS: ROCEPHIN/NS 1 GM/50 ML 1 GM/50 ML BAG IV SCH (22:39)
[2016-11-13] MEDS: APRESOLINE IV PRN ×2 (00:15→20:11)
[2016-11-13] MEDS: NACL 0.9% 1000 ML 1,000 ML IV SCH ×2 (01:14→17:06)
[2016-11-13] MEDS: HEPARIN SUB-Q SCH ×3 (05:58→21:36)
[2016-11-13] MEDS: NOVOLOG SUB-Q SCH ×4 (08:56→22:00)
[2016-11-13] MEDS: ZESTRIL PO SCH (10:12)
[2016-11-13] MEDS: ASPIRIN PO SCH (10:12)
[2016-11-13] MEDS: NORVASC PO SCH (10:13)
--- NOTE | 2016-11-13 16:16 | Progress Note ---
Assessment and Plan Acute encephalopathy Likely from acute cva, but need to r/o possible seizure TSH within normal limits, CT head with no acute abnormalities MRI showed multiple acute CVA on the right hemisphere consulted neurology, EEG pending Acute right CVA Noted MRI result consulted neurology 2d echo showed no thrombus will order hypercoagulation work up UTI UA positive, urine culture obtained and started on Rocephin Hyponatremia Mild, resolved Elevated lactic acid Treat UTI HTN Started on amlodipine on admission changed to metoprolol as he is getting tachycardic, cont lisinopril DM type 2 Started on insulin 70/30 A1c elevated at 8.8 and BS in 200-300 range Increased dose of insulin to 20 unit qam and bedtime and add SSI based on the BG level and make adjustments add metformin DVT prophylaxis Heparin subcutaneous Brief History: 36 years old AAM with hypertension and diabetes, who gets his care at the [facility], brought to ER from [facility] where he was found confused laying on the floor in the hot tub area. Radiological Data: CT head on 11/09/16 showed no acute finding MRI of brain on 11/11/16 showed multiple diffusion restriction on the right hemisphere Subjective Date of service: 11/13/16 Interval history: Pt seen and examined No reports of any acute issue overnight, PT eval pending Objective - Exam Narrative Exam: General appearance: Present: no acute distress, well-nourished - EENT Eyes: Present: PERRL, EOM intact. Absent: scleral icterus, conjunctival injection - Neck Neck: Present: supple, normal ROM. Absent: masses or JVD - Respiratory Respiratory effort: normal Respiratory: bilateral: CTA, negative: rhonchi, wheezing - Cardiovascular Rhythm: regular Heart Sounds: Present: S1 & S2. Absent: systolic murmur - Extremities Extremities: no ischemia - Abdominal General gastrointestinal: soft, non-tender, non-distended, normal bowel sounds - Psychiatric Psychiatric: cooperative - Neurologic Neurologic: CNII-XII intact, no focal deficits - Constitutional Vitals: Vital Signs - 12hr 11/13/16 11/13/16 11/13/16 05:18 07:32 10:12 Temperature 98.2 F 97.7 F Pulse Rate 102 H 108 H Respiratory 18 24 Rate Blood Pressure 151/102 157/97 157/97 O2 Sat by Pulse 99 97 Oximetry 11/13/16 11/13/16 11/13/16 10:13 11:05 15:08 Temperature 98.1 F 98.3 F Pulse Rate 98 H 89 Respiratory 16 18 Rate Blood Pressure 157/97 146/96 145/93 O2 Sat by Pulse 97 100 Oximetry - Labs CBC & Chem 7: 11/11/16 06:18 11/12/16 11:13 Labs: Abnormal lab results 11/12/16 11/12/16 11/13/16 Range/Units 16:58 21:18 06:26 POC Glucose 213 H 232 H 232 H (70-105) 11/13/16 Range/Units 11:07 POC Glucose 247 H (70-105)
[2016-11-13] MEDS: GLUCOPHAGE PO SCH (18:01)
[2016-11-13] MEDS: ROCEPHIN/NS 1 GM/50 ML 1 GM/50 ML BAG IV SCH (21:35)
[2016-11-13] MEDS: COREG PO SCH (21:36)
[2016-11-14] MEDS: HEPARIN SUB-Q SCH ×3 (05:15→21:06)
[2016-11-14] MEDS: NOVOLOG SUB-Q SCH ×4 (08:45→21:28)
[2016-11-14] MEDS: GLUCOPHAGE PO SCH ×2 (08:46→17:24)
[2016-11-14] MEDS: COREG PO SCH ×2 (09:50→21:05)
[2016-11-14] MEDS: ASPIRIN PO SCH (09:51)
[2016-11-14] MEDS: ZESTRIL PO SCH (09:51)
--- NOTE | 2016-11-14 10:28 | Discharge Summary ---
Providers - Providers Date of Admission: 11/10/16 02:26 Date of discharge: 11/15/16 Attending physician: CLINT HURT 11/11/16 13:10 psychiatry consult [Consult to Mental Health] [CONS] Routine Reason For Exam: ?PTSD/other psyc disorder. [facility] consult to:: Notified:: Phone number called:: [phone] Time called:: 14:37 11/12/16 10:52 Consult to Physician [CONS] Routine Consulting Provider: LINUS GODFREY Reason For Exam: acute cva Place consult to:: neurology/DR. GODFREY Notified:: OFFICE Phone number called:: [phone] Was contact made?: Yes If yes, spoke with:: CELIA Time called:: 11:09 Comment:: JD NOTIFIED 11/12/16 10:54 Physical Therapy Evaluation and Treat [CONS] Routine Comment: Reason For Exam: placement Primary care physician: BLASTING [employer] [facility]ER Hospitalization Condition: Fair Disposition: DC-30 STILL A PATIENT Exam - Constitutional Vitals: Temp Pulse Resp BP Pulse Ox 98.6 F 90 17 142/102 98 11/14/16 08:54 11/14/16 09:51 11/14/16 08:54 11/14/16 09:51 11/14/16 08:54 Plan Follow up with: PRIMARY CARE, [Primary Care Provider] - 3-5 Days Prescriptions: AtorvaSTATin [Lipitor] 40 mg PO QHS #30 tablet Carvedilol [Coreg] 6.25 mg PO BID #60 tablet Clopidogrel [Plavix] 75 mg PO QDAY #30 tablet Insulin NPH/Regular [NovoLIN 70/30] 20 unit SUB-Q BIDDIAB 60 Days Lisinopril [Zestril TAB] 20 mg PO QDAY #30 tablet metFORMIN [Glucophage] 500 mg PO BIDDIAB #60 tablet
[2016-11-14] MEDS: NACL 0.9% 1000 ML 1,000 ML IV SCH (12:48)
--- NOTE | 2016-11-14 15:14 | Consultation ---
History of Present Illness - Reason for Consult Consult date: 11/14/16 Reason for consult: Mental Health Evaluation Requesting physician: GIL CONTRERAS - Chief Complaint Chief complaint: "I don't know what happened" - History of Present Psychiatric Illness 36 year-old male brought in by EMS for evaluation of altered mental status. He was found lying on the floor near a pool at [place]. Today patient is calm and cooperative during the assessment. He stated that he remember "falling out" at [place] and cannot recall anything else. He was able to recall 2/3 number (3,6,11) with in 5 mins. He was able to tell me his and stated who's the current [place] President. When asked his location, he stated, "My friend's house." On assessment patient had left sided weakness and drools (on the left of his mouth) when he eats. He denies SI/HI's, AVH's, and depression. He denies recreational drug use and alcohol consumption. Patient acknowledged that he uses the [facility] for medical care. He denies PTSD. Medications and Allergies Allergies Allergy/AdvReac Type Severity Reaction Status Date / Time No Known Allergies Allergy Verified 11/09/16 20:16 Home Medications Medication Instructions Recorded Confirmed Last Taken Type AtorvaSTATin [Lipitor] 40 mg PO QHS #30 tablet 11/14/16 Unknown Rx Carvedilol [Coreg] 6.25 mg PO BID #60 tablet 11/14/16 Unknown Rx Clopidogrel [Plavix] 75 mg PO QDAY #30 tablet 11/14/16 Unknown Rx Insulin NPH/Regular [NovoLIN 70/30] 20 unit SUB-Q BIDDIAB 60 Days 11/14/16 Unknown Rx Lisinopril [Zestril TAB] 20 mg PO QDAY #30 tablet 11/14/16 Unknown Rx metFORMIN [Glucophage] 500 mg PO BIDDIAB #60 tablet 11/14/16 Unknown Rx Active Meds: Active Medications Acetaminophen (Tylenol) 650 mg PO Q4H PRN PRN Reason: Pain MILD(1-3)/Fever >100.5/BERNARD Acetaminophen/Hydrocodone Bitart ([place] 5/325) 1 each PO Q6H PRN PRN Reason: Pain, Moderate (4-6) Last Admin: 11/10/16 22:48 Dose: 1 each Aspirin (Aspirin) 325 mg PO QDAY [facility] Last Admin: 11/14/16 09:51 Dose: 325 mg Atorvastatin Calcium (Lipitor) 40 mg PO QHS [facility] Last Admin: 11/13/16 21:35 Dose: 40 mg Bisacodyl (Dulcolax) 10 mg [place] QDAY PRN PRN Reason: Constipation unrelieved by MOM Carvedilol (Coreg) 6.25 mg PO BID [facility] Last Admin: 11/14/16 09:50 Dose: 6.25 mg Dextrose (D50w (25gm) Syringe) 50 ml IV PRN PRN PRN Reason: Hypoglycemia Heparin Sodium (Porcine) (Heparin) 5,000 unit SUB-Q Q8HR [facility] Last Admin: 11/14/16 14:50 Dose: 5,000 unit Hydralazine HCl (Apresoline) 10 mg IV Q4HR PRN PRN Reason: For SBP>165 or DBP>105 Last Admin: 11/13/16 20:11 Dose: 10 mg Ceftriaxone Sodium (Rocephin/Ns 1 Gm/50 Ml) 1 gm in 50 mls @ 100 mls/hr IV Q24H [facility] PRN Reason: Protocol Last Admin: 11/13/16 21:35 Dose: 100 mls/hr Sodium Chloride (Nacl 0.9% 1000 Ml) 1,000 mls @ 75 mls/hr IV DIRECT [facility] Last Admin: 11/14/16 12:48 Dose: 75 mls/hr Insulin Aspart (Novolog) 0 units SUB-Q AC [facility] PRN Reason: Protocol Last Admin: 11/14/16 12:31 Dose: 2 units Insulin Aspart (Novolog) 0 units SUB-Q QHS [facility] PRN Reason: Protocol Last Admin: 11/13/16 22:00 Dose: Not Given Insulin Human Isoph/Insulin Regular (Novolin 70/30) 20 unit SUB-Q BIDDIAB [facility] Last Admin: 11/14/16 08:45 Dose: 20 unit Lisinopril (Zestril) 20 mg PO QDAY [facility] Last Admin: 11/14/16 09:51 Dose: 20 mg Magnesium Hydroxide (Milk Of Magnesia) 30 ml PO Q4H PRN PRN Reason: Constipation Metformin HCl (Glucophage) 500 mg PO BIDDIAB [facility] Last Admin: 11/14/16 08:46 Dose: 500 mg Ondansetron HCl (Zofran) 4 mg IV Q6H PRN PRN Reason: nausea or vomiting Past psychiatric history - Past Medical History Past Medical History: diabetes Past Surgical History: No surgical history - past Psychiatric treatment and history psychiatric treatment history: Patient denies a psy hx and denies a fam psy hx. - Social History Social history: Lives alone () Mental Status Exam - Vital signs Last Vital Signs Temp 98.0 F 11/14/16 12:04 Pulse 90 11/14/16 09:51 Resp 18 11/14/16 12:04 BP 140/95 11/14/16 12:04 Pulse Ox 98 11/14/16 08:54 - Exam Narrative exam: MSE: Appearance: calm, cooperative Behavior: regular eye contact Speech: regular rate and tone Mood: "okay" Affect: congruent to mood Thought Process: circumstantial Thought Content: denies SI/HI's and AVH's Motor Activity: left sided weakness Cognition: A/Ox 2 Insight: fair Judgment: fair Results Result Diagrams: 11/11/16 06:18 11/12/16 11:13 Abnormal lab results 11/13/16 11/13/16 11/14/16 Range/Units 16:50 21:05 06:16 POC Glucose 241 H 214 H 202 H (70-105) 11/14/16 Range/Units 11:37 POC Glucose 142 H (70-105) All other labs normal. Assessment and Plan Assessment and plan: Impression: Medical: Acute Encephalopathy. Today patient is calm and cooperative during the assessment. Head MRI - Multiple small emboli to right cerebral hemisphere. Neuro is following patient. Recommendation/Plan: Recommend swallowing evaluation. [facility]. Psychiatry signoff this patient. Reconsult when indicated. Delirium Precaution below: 1. Frequently reorient patient and involve him/her in their care (simple explanations of procedures, tests, medications). 2. Lights on and shades open during daytime hours. 3. Try to avoid unnecessary interruptions to sleep during nighttime hours. 4. Obtain glasses, hearing aids from home if patient uses these at baseline. 5. Avoid medications that may exacerbate delirium (especially narcotics, barbiturates, ambien, lunesta, benzos, and medications with excessive anticholinergic properties).
--- NOTE | 2016-11-14 18:17 | Progress Note ---
Assessment and Plan /Acute right CVA Noted MRI result consulted neurology 2d echo showed no thrombus Ordered hypercoagulation work up Discuss with neurology and recommended MELVIN /Acute encephalopathy Likely from acute cva, but need to r/o possible seizure TSH within normal limits, CT head with no acute abnormalities MRI showed multiple acute CVA on the right hemisphere consulted neurology, EEG pending /CHF with systolic dysfunction - Like continue diagnosis - We'll continue beta mac and lisinopril along with aspirin and statin /UTI UA positive, urine culture obtained and started on Rocephin /Hyponatremia Mild, resolved /Elevated lactic acid Treat UTI /HTN Started on amlodipine on admission changed to metoprolol as he was getting tachycardic, cont lisinopril /DM type 2 Started on insulin 70/30 A1c elevated at 8.8 and BS in 200-300 range Increased dose of insulin to 20 unit qam and bedtime and add SSI based on the BG level and make adjustments added metformin, blood glucose better controlled on /Possible aspiration likely due to underlying acute CVA We'll get speech eval /DVT prophylaxis Heparin subcutaneous Brief History: 36 years old AAM with hypertension and diabetes, who [facility], brought to ER from [facility] where he was found confused laying on the floor in the hot tub area. Radiological Data: CT head on 11/09/16 showed no acute finding MRI of brain on 11/11/16 showed multiple diffusion restriction on the right hemisphere 2-D echo: No cardioembolic source, ejection fraction 45 - 50% Subjective Date of service: 11/14/16 Interval history: Pt seen and examined, PT recommended subacute rehabilitation Patient is developing cough and he tries to drink liquid Discussed with neurology recommended MELVIN for the evaluation of possible cardic emboli Objective - Exam Narrative Exam: General appearance: Present: no acute distress, well-nourished - EENT Eyes: Present: PERRL, EOM intact. Absent: scleral icterus, conjunctival injection - Neck Neck: Present: supple, normal ROM. Absent: masses or JVD - Respiratory Respiratory effort: normal Respiratory: bilateral: CTA, negative: rhonchi, wheezing - Cardiovascular Rhythm: regular Heart Sounds: Present: S1 & S2. Absent: systolic murmur - Extremities Extremities: no ischemia - Abdominal General gastrointestinal: soft, non-tender, non-distended, normal bowel sounds - Psychiatric Psychiatric: cooperative - Neurologic Neurologic: CNII-XII intact, no focal deficits - Constitutional Vitals: Vital Signs - 12hr 11/14/16 11/14/16 11/14/16 08:54 09:50 09:51 Temperature 98.6 F Pulse Rate 90 90 90 Respiratory 17 Rate Blood Pressure 142/102 142/102 Blood Pressure 142/102 [Left] O2 Sat by Pulse 98 Oximetry 11/14/16 11/14/16 12:04 15:53 Temperature 98.0 F 98.4 F Pulse Rate Respiratory 18 16 Rate Blood Pressure 140/95 150/79 Blood Pressure [Left] O2 Sat by Pulse Oximetry - Labs CBC & Chem 7: 11/11/16 06:18 11/12/16 11:13 Labs: Abnormal lab results 11/13/16 11/14/16 11/14/16 Range/Units 21:05 06:16 11:37 POC Glucose 214 H 202 H 142 H (70-105) 11/14/16 Range/Units 16:15 POC Glucose 167 H (70-105)
[2016-11-14] MEDS: ROCEPHIN/NS 1 GM/50 ML 1 GM/50 ML BAG IV SCH (21:14)
[2016-11-15] MEDS: NACL 0.9% 1000 ML 1,000 ML IV SCH (01:25)
[2016-11-15] MEDS: HEPARIN SUB-Q SCH ×3 (05:52→14:13)
[2016-11-15] MEDS: NOVOLOG SUB-Q SCH ×2 (07:38→14:09)
[2016-11-15] MEDS: GLUCOPHAGE PO SCH ×2 (07:38→17:30)
[2016-11-15] MEDS: COREG PO SCH (10:04)
[2016-11-15] MEDS: ZESTRIL PO SCH ×3 (10:05→17:30)
[2016-11-15] MEDS ORDERED: VERSED IV ONE (10:36)
[2016-11-15] MEDS ORDERED: HURRICAINE ONE 20% TOPICAL SPRAY MM NR (11:00)
[2016-11-15] MEDS ORDERED: SUBLIMAZE IV ONE (11:00)
--- NOTE | 2016-11-15 13:08 | XRay Report ---
Single view chest: History: Fever. Findings: Cardiomegaly. Trachea is midline. No consolidation, pneumothorax or pleural effusion. Impression: Cardiomegaly. No acute lung changes.
[2016-11-15] MEDS ORDERED: D5NS 1,000 ML IV SCH (17:00)
[2016-11-15] MEDS: ASPIRIN PO SCH (17:26)
[2016-11-15 17:31] VITALS: BP 150/100
== END 2016-11-15 18:15 | disposition home or self-care (01) | DRG 64 ==
LOC: ED 19:28 → 3A 11-10 02:26
PROVIDERS: ADMIT Internal Medicine; ATTEND Internal Medicine
DX: I63.9 Cerebral infarction, unspecified (principal); G93.41 Metabolic encephalopathy; N39.0 Urinary tract infection, site not specified; E87.1 Hypo-osmolality and hyponatremia; E11.8 Type 2 diabetes mellitus with unspecified complications; I10 Essential (primary) hypertension; R41.0 Disorientation, unspecified; Z82.49 Family history of ischemic heart disease and other diseases of the circulatory system
CPT/HCPCS: 36415; 70450; 70551; 71010; 80048; 80053; 80307; 80320; 81001; 82140; 82550; 82962; 83036; 83735; 84443; 85025; 85301; 85305; 85610; 85613; 85730; 86038; 86225; 86618; 87086; 93005; 93010; 93306; 96361; 96374; A9270-GY; G0480; J0360; J0696; J1644; J1815; J2060; J2250; J3010; J7030